=== PATIENT | female | born 1940 | race Caucasian/White ===

== ENCOUNTER 2018-05-19 00:17 | Inpatient (IN) | payer OTHER ==
[2018-05-19] MEDS ORDERED: dilTIAZem HCl 25 MG/5 ML VIAL IV ONE (00:59)
[2018-05-19 01:02] LABS: Absolute Monocytes 0.9 K/uL (0.1-1.3); Absolute Neutrophil 4.5 K/uL (1.8-8.0); Basophils % 0.7 % (0-1.3); Eosinophils % 3.8 % (0-4.4); Hematocrit 40.1 % (36.0-45.0); Lymphocytes % 34.6 % (15.3-44.8); MPV 9.6 fL (7.6-11.3); Monocytes % 9.9 % (3.3-12.3); RBC Red Blood Cell Count 4.35 M/uL (3.86-4.86)
[2018-05-19 01:03] LABS: Protime INR 1.45
[2018-05-19 01:07] LABS: ALT/SGPT 19 U/L (12-78); AST/SGOT 16 U/L (15-37); Albumin 3.6 g/dL (3.4-5.0); Alkaline Phosphatase 93 U/L (45-117); BUN Blood Urea Nitrogen 15 mg/dL (7-18); Bicarbonate 27 mmol/L (21-32); Bilirubin Direct 0.1 mg/dL (0-0.2); Bilirubin Total 0.3 mg/dL (0.2-1.0); Glucose Level 92 mg/dL (74-106); NT PRO-BNP 3958 pg/mL (<450); Potassium 4.1 mmol/L (3.5-5.1); Protein, Total 7.3 g/dL (6.4-8.2); Sodium Level 139 mmol/L (136-145); Troponin (Emerg Dept Use Only) < 0.02 ng/mL (0.0-0.045)
--- NOTE | 2018-05-19 01:23 | ER ---
Nurse's Notes [facility] Name: Tara Mccurdy Age: 78 yrs Sex: Female : 1940 Arrival Date: 05/19/2018 Time: 00:18 Bed 20 Private MD: Larry Bernal C Diagnosis: Paroxysmal atrial fibrillation Presentation: 05/19 00:31 Presenting complaint: Patient states: My heart has been racing and I felt like I was ed1 starting to get a little clammy so I figured I would get checked out. Transition of care: patient was not received from another setting of care. Onset of symptoms was May 17, 2018 at 22:00. Risk Assessment: Do you want to hurt yourself or someone else? Patient reports no desire to harm self or others. Initial Sepsis Screen: Does the patient meet any 2 criteria? No. Patient's initial sepsis screen is negative. Does the patient have a suspected source of infection? No. Patient's initial sepsis screen is negative. Care prior to arrival: None. 00:31 Method Of Arrival: Ambulatory ed1 00:31 Acuity: AIDEE 2 ed1 Triage Assessment: 00:38 General: Appears in no apparent distress. Behavior is calm, cooperative. Pain: Denies ed1 pain. EENT: No signs and/or symptoms were reported regarding the EENT system. Neuro: Level of Consciousness is awake, alert, obeys commands, Oriented to person, place, time, situation, Denies weakness blurred vision dizziness, numbness headache. Cardiovascular: Reports palpitations, since around 10pm Denies chest pain, Heart tones present Capillary refill < 3 seconds in bilateral fingers Patient's skin is warm and dry. Rhythm is atrial fibrillation. Respiratory: Airway is patent Respiratory effort is even, unlabored, Respiratory pattern is regular, symmetrical, Breath sounds are clear bilaterally. Denies cough, shortness of breath. GI: Patient currently denies diarrhea, nausea, vomiting. : No signs and/or symptoms were reported regarding the genitourinary system. Derm: Skin is intact, is healthy with good turgor, Skin is dry, Skin is normal, Skin temperature is warm. Musculoskeletal: Circulation, motion, and sensation intact. Range of motion: intact in all extremities. Historical: - Allergies: 00:38 No Known Allergies; ed1 - Home Meds: 00:38 isosorbide mononitrate 30 mg Oral Tb24 1 tab once daily [Active]; atorvastatin 40 mg ed1 oral tab 1 tab once daily [Active]; apixaban oral 5mg oral twice a day [Active]; metoprolol succinate 50 mg oral Tb24 1 tab once daily [Active]; citalopram 10 mg tab 1 tab once daily [Active]; ranolazine oral 500mg oral daily [Active]; ezetimibe oral 10mg oral once daily [Active]; nitroglycerin 0.4 mg SL subl 1 tab every 5 minutes [Active]; - PMHx: 00:38 Atrial Fib; ed1 - PSHx: 00:38 Cholecystectomy; Appendectomy; ed1 - Immunization history:: Adult Immunizations up to date, Flu vaccine is up to date. - Social history:: Smoking status: Patient/guardian denies using tobacco, never smoked. - Ebola Screening: : Patient negative for fever greater than or equal to 101.5 degrees Fahrenheit, and additional compatible Ebola Virus Disease symptoms Patient denies exposure to infectious person Patient denies travel to an Ebola-affected area in the 21 days before illness onset No symptoms or risks identified at this time. Screenin:44 Abuse screen: Denies threats or abuse. Denies injuries from another. Nutritional ed1 screening: No deficits noted. Tuberculosis screening: No symptoms or risk factors identified. Fall Risk None identified. Assessment: 00:43 General: See triage assessment. ed1 Vital Signs: 00:38 BP 116 / 91; Pulse 130; Resp 20; Temp 97.6(O); Pulse Ox 93% on R/A; Weight 82.55 kg; ed1 Height 5 ft. 8 in. (172.72 cm); Pain 0/10; 01:06 BP 109 / 62; Pulse 95; Resp 26; Pulse Ox 95% on R/A; Pain 0/10; ed1 00:38 Body Mass Index 27.67 (82.55 kg, 172.72 cm) ed1 ED Course: 00:18 Patient arrived in ED. do 00:19 Larry Bernal MD is Private Physician. do 00:25 Elizabeth Cr, ZIGGY is Primary Nurse. ed1 00:29 Genaro Keating MD is Attending Physician. tw4 00:32 Triage completed. ed1 00:38 Arm band placed on. EKG completed in triage. Results shown to MD. ed1 00:38 Patient has correct armband on for positive identification. Placed in gown. Bed in low ed1 position. Call light in reach. Side rails up X2. Adult w/ patient. potline monitor on. Pulse ox on. NIBP on. 00:43 Initial lab(s) drawn, by me, sent to lab. Inserted saline lock: 20 gauge in right ed1 antecubital area, using aseptic technique. Blood collected. 01:21 Larry Bernal MD is Hospitalizing Provider. tw4 01:40 XRAY Chest (1 view) In Process Unspecified. EDMS 03:45 No provider procedures requiring assistance completed. Patient admitted, IV remains in ed1 place. intact, No redness/swelling at site. 07:00 Primary Nurse role handed off by Elizabeth Cr, ZIGGY ed1 07:04 Hansel Laguna LVN is Primary Nurse. em Administered Medications: 00:57 Drug: Cardizem 10 mg Route: IVP; Site: right antecubital; ed1 01:15 Follow up: Response: No adverse reaction; Cardiac rhythm changed ed1 01:44 Drug: Metoprolol 25 mg Route: PO; ed1 02:30 Follow up: Response: No adverse reaction ed1 Outcome: 01:22 Decision to Hospitalize by Provider. tw4 03:45 Admitted to ER Hold. Please see [facility] for further documentation. ed1 03:45 Condition: stable 03:45 Discharge instructions given to patient, Instructed on the need for admit, Demonstrated understanding of instructions. 08:15 Patient left the ED. em Signatures: Dispatcher [employer] Hansel Bishop LVN LVN em Elizabeth Cr, RN RN ed1 Fern Romano Terrence, MD MD tw4
--- NOTE | 2018-05-19 01:23 | EDPHYS ---
Physician Documentation [facility] Name: Tara Mccurdy Age: 78 yrs Sex: Female : 1940 Arrival Date: 05/19/2018 Time: 00:18 Bed 20 Private MD: Larry Bernal C ED Physician Genaro Keating HPI: 05/19 03:02 This 78 yrs old Female presents to ER via Ambulatory with complaints of Afib tw4 last night, feels clammy, heart racing. 03:02 The patient presents with a history of heart racing, heart skipping beats. Context: The tw4 symptoms occur at rest. Onset: The symptoms/episode began/occurred just prior to arrival, this morning. Duration: The patient or guardian reports a single episode, that is still ongoing. Modifying factors: The symptoms are aggravated by nothing. The symptoms are alleviated by nothing. Associated signs and symptoms: The patient has no apparent associated signs or symptoms. Severity of symptoms: At their worst the symptoms were moderate in the emergency department the symptoms are unchanged. The patient has not experienced similar symptoms in the past. Historical: - Allergies: 00:38 No Known Allergies; ed1 - Home Meds: 00:38 isosorbide mononitrate 30 mg Oral Tb24 1 tab once daily [Active]; atorvastatin 40 mg ed1 oral tab 1 tab once daily [Active]; apixaban oral 5mg oral twice a day [Active]; metoprolol succinate 50 mg oral Tb24 1 tab once daily [Active]; citalopram 10 mg tab 1 tab once daily [Active]; ranolazine oral 500mg oral daily [Active]; ezetimibe oral 10mg oral once daily [Active]; nitroglycerin 0.4 mg SL subl 1 tab every 5 minutes [Active]; - PMHx: 00:38 Atrial Fib; ed1 - PSHx: 00:38 Cholecystectomy; Appendectomy; ed1 - Immunization history:: Adult Immunizations up to date, Flu vaccine is up to date. - Social history:: Smoking status: Patient/guardian denies using tobacco, never smoked. - Ebola Screening: : Patient negative for fever greater than or equal to 101.5 degrees Fahrenheit, and additional compatible Ebola Virus Disease symptoms Patient denies exposure to infectious person Patient denies travel to an Ebola-affected area in the 21 days before illness onset No symptoms or risks identified at this time. ROS: 03:02 Constitutional: Negative for fever, chills, and weight loss, Eyes: Negative for injury, tw4 pain, redness, and discharge, Respiratory: Negative for shortness of breath, cough, wheezing, and pleuritic chest pain, Abdomen/GI: Negative for abdominal pain, nausea, vomiting, diarrhea, and constipation, Back: Negative for injury and pain. 03:02 Cardiovascular: Positive for palpitations, Negative for chest pain, edema, orthopnea. Exam: 03:02 Constitutional: This is a well developed, well nourished patient who is awake, alert, tw4 and in no acute distress. Head/Face: Normocephalic, atraumatic. Chest/axilla: Normal chest wall appearance and motion. Nontender with no deformity. No lesions are appreciated. Respiratory: Lungs have equal breath sounds bilaterally, clear to auscultation and percussion. No rales, rhonchi or wheezes noted. No increased work of breathing, no retractions or nasal flaring. Abdomen/GI: Soft, non-tender, with normal bowel sounds. No distension or tympany. No guarding or rebound. No evidence of tenderness throughout. Back: No spinal tenderness. No costovertebral tenderness. Full range of motion. MS/ Extremity: Pulses equal, no cyanosis. Neurovascular intact. Full, normal range of motion. Neuro: Awake and alert, GCS 15, oriented to person, place, time, and situation. Cranial nerves II-XII grossly intact. Motor strength 5/5 in all extremities. Sensory grossly intact. Cerebellar exam normal. Normal gait. 03:02 Cardiovascular: Rate: normal, Rhythm: irregularly irregular, Pulses: no pulse deficits are appreciated, Heart sounds: normal. Vital Signs: 00:38 BP 116 / 91; Pulse 130; Resp 20; Temp 97.6(O); Pulse Ox 93% on R/A; Weight 82.55 kg; ed1 Height 5 ft. 8 in. (172.72 cm); Pain 0/10; 01:06 BP 109 / 62; Pulse 95; Resp 26; Pulse Ox 95% on R/A; Pain 0/10; ed1 00:38 Body Mass Index 27.67 (82.55 kg, 172.72 cm) ed1 MDM: 00:29 Patient medically screened. tw4 03:02 Differential diagnosis: arrythmia, dehydration, stress disorder. Data reviewed: vital tw4 signs, nurses notes. Data interpreted: Pulse oximetry: Interpretation:. Test interpretation: by ED physician or midlevel provider: ECG, plain radiologic studies. Counseling: I had a detailed discussion with the patient and/or guardian regarding: the historical points, exam findings, and any diagnostic results supporting the discharge/admit diagnosis, lab results, radiology results. Medication response: cardizem. Response to treatment: the patient's symptoms have markedly improved after treatment, and as a result, I will admit patient, give anti-hypertensive medication. Physician consultation: Jay Haley MD was contacted at 01:30, regarding admission, and will see patient in inpatient room. 03:12 ED course: Pt achieved good rate control after IV Cardizem 10mg . Pt EKG continues show tw4 atrial fibrillation with a rate of 100. Will add metoprolol po 25mg. D/W Dr Tera allen agrees with treatment plan and admission. 05/19 00:33 Order name: Basic Metabolic Panel; Complete Time: 01:34 tw4 05/19 01:34 Interpretation: Normal except: GFR 66. tw4 05/19 00:33 Order name: CBC with Diff; Complete Time: 01:34 tw4 05/19 01:34 Interpretation: Within normal limits. 05/19 00:33 Order name: LFT's; Complete Time: 01:34 tw4 05/19 01:34 Interpretation: Normal except: GLOB 3.7; A/G 1.0. tw4 05/19 00:33 Order name: Magnesium; Complete Time: 01:34 tw4 05/19 01:34 Interpretation: Within normal limits: MG 2.0. 05/19 00:33 Order name: NT PRO-BNP; Complete Time: 01:34 tw4 05/19 01:34 Interpretation: Normal except: NT PRO-BNP 3958. tw05/19 00:33 Order name: PT-INR; Complete Time: 01:34 tw4 05/19 01:34 Interpretation: Normal except: PT 16.9. tw4 05/19 00:33 Order name: Troponin (emerg Dept Use Only) tw4 05/19 01:44 Order name: Basic Metabolic Panel [facility] 05/19 01:44 Order name: Basic Metabolic Panel [facility] 05/19 01:44 Order name: CBC with Automated Diff [facility] 05/19 01:44 Order name: CBC with Automated Diff [facility] 05/19 01:45 Order name: Comprehensive Metabolic Panel [facility] 05/19 01:45 Order name: T4 Free [facility] 05/19 01:45 Order name: Thyroid Stimulating Hormone [facility] 05/19 00:33 Order name: XRAY Chest (1 view) tw4 05/19 00:33 Order name: EKG; Complete Time: 00:34 4 05/19 00:33 Order name: Cardiac monitoring; Complete Time: 00:44 05/19 00:33 Order name: EKG - Nurse/Tech; Complete Time: 00:44 05/19 00:33 Order name: IV Saline Lock; Complete Time: 00:44 4 05/19 00:33 Order name: Labs collected and sent; Complete Time: 00:44 tw4 05/19 01:44 Order name: CONS Physician Consult [facility] 05/19 01:44 Order name: Heart Healthy [facility] 05/19 01:44 Order name: Echo with Doppler [facility] 05/19 01:44 Order name: EKG Electrocardiogram [facility] 05/19 01:44 Order name: EKG Electrocardiogram [facility] 05/19 01:45 Order name: Magnesium [facility] 05/19 01:45 Order name: Magnesium [facility] 05/19 01:45 Order name: Troponin I [facility] 05/19 00:33 Order name: O2 Per Protocol; Complete Time: 00:44 tw4 05/19 00:33 Order name: O2 Sat Monitoring; Complete Time: 00:43 tw4 EC:16 Rate is 118 beats/min. Rhythm is irregularly irregular, A fib. QRS [place] is Normal. TN tw4 interval is normal. QRS interval is normal. QT interval is normal. No Q waves. T waves are Normal. No ST changes noted. Clinical impression: Abnormal EKG without significant change and Atrial Fibrillation. Interpreted by me. Reviewed by me. Administered Medications: 00:57 Drug: Cardizem 10 mg Route: IVP; Site: right antecubital; ed1 01:15 Follow up: Response: No adverse reaction; Cardiac rhythm changed ed1 01:44 Drug: Metoprolol 25 mg Route: PO; ed1 02:30 Follow up: Response: No adverse reaction ed1 Disposition: 05/19/18 01:22 Hospitalization ordered by Larry Bernal for Inpatient Admission. Preliminary diagnosis is Paroxysmal atrial fibrillation. - Bed requested for Telemetry/MedSurg (Inpatient). - Status is Inpatient Admission. em - Condition is Stable. - Problem is new. - Symptoms have improved. UTI on Admission? No Signatures: Dispatcher [employer] EDMS Pati Yee, RN RN Teresa Jackson RN RN Hansel Laguna, MEDICAL DETAIL REPRESENTATIVE MEDICAL DETAIL REPRESENTATIVE em Elizabeth Cr RN RN ed1 Genaro Keating MD MD tw4 Corrections: (The following items were deleted from the chart) 02:23 01:22 Hospitalization Ordered by A Gabe DSOUZA for Inpatient Admission. Preliminary diagnosis is Paroxysmal atrial fibrillation. Bed requested for Telemetry/MedSurg (Inpatient). Status is Inpatient Admission. Condition is Stable. Problem is new. Symptoms have improved. UTI on Admission? No. tw4 05:51 02:23 05/19/2018 01:22 Hospitalization Ordered by A Gabe DSOUZA for Inpatient Admission. Preliminary diagnosis is Paroxysmal atrial fibrillation. Bed requested for [facility] ER HOLD. Status is Inpatient Admission. Condition is Stable. Problem is new. Symptoms have improved. UTI on Admission? No. fc 08:15 05:51 05/19/2018 01:22 Hospitalization Ordered by A Gabe DSOUZA for Inpatient Admission. Preliminary diagnosis is Paroxysmal atrial fibrillation. Bed requested for Telemetry/MedSurg (Inpatient). Status is Inpatient Admission. Condition is Stable. Problem is new. Symptoms have improved. UTI on Admission? No.
[2018-05-19] MEDS ORDERED: ACETAMINOPHEN 500 MG TAB PO PRN (01:40)
[2018-05-19] MEDS ORDERED: MORPHINE 4 MG/ML SYR IV PRN (01:40)
[2018-05-19] MEDS ORDERED: METOPROLOL TAR 25 MG TAB ONE (01:46)
[2018-05-19] MEDS: METOPROLOL TARTRATE 5 MG/5 ML INJ IV SCH ×2 (03:00→03:05)
[2018-05-19 03:02] VITALS: BMI 27.6
[2018-05-19] MEDS: METOPROLOL TAR 50 MG TAB PO SCH ×3 (06:00→20:35)
[2018-05-19 06:26] LABS: ALT/SGPT 18 U/L (12-78); AST/SGOT 15 U/L (15-37); Albumin 3.2 g/dL (3.4-5.0); Alkaline Phosphatase 81 U/L (45-117); BUN Blood Urea Nitrogen 13 mg/dL (7-18); Bicarbonate 27 mmol/L (21-32); Bilirubin Total 0.3 mg/dL (0.2-1.0); Glucose Level 93 mg/dL (74-106); Potassium 4.5 mmol/L (3.5-5.1); Protein, Total 6.7 g/dL (6.4-8.2); Sodium Level 142 mmol/L (136-145); Troponin I < 0.02 ng/mL (0.0-0.045)
[2018-05-19] MEDS ORDERED: METOPROLOL TAR 50 MG TAB ONE (06:35)
[2018-05-19] MEDS: APIXABAN 5 MG TABLET PO SCH ×2 (08:23→20:35)
[2018-05-19] MEDS: ASPIRIN EC 81 MG TAB PO SCH (08:23)
--- NOTE | 2018-05-19 09:43 | EKG ---
Test Date: 2018-05-19 Test Time: 00:35:21 Variety Saw Operator: AG3 MEASUREMENT RESULTS: Intervals: Rate: 118 MD: QRSD: 84 QT: 356 QTc: 498 [place]: P: MD: QRS: 25 T: 78 INTERPRETIVE STATEMENTS: Atrial fibrillation with rapid ventricular response Inferior infarct, age undetermined Anterolateral infarct, age undetermined Abnormal ECG No previous ECG available for comparison Electronically Signed On 05-19-18 09:42:51 CDT by Reyes Stephens
[2018-05-19 09:51] LABS: Urine Appearance CLEAR; Urine Bilirubin NEGATIVE (NEG); Urine Blood NEGATIVE (NEG); Urine Color YELLOW; Urine Glucose NEGATIVE (NEG); Urine Protein NEGATIVE (NEG); Urine Specific Gravity <=1.005 (1.005-1.030); Urine Urobilinogen 0.2 mg/dL (0.2-1.0); Urine pH 5.5 (5.0-7.0)
[2018-05-19 10:09] LABS: Urine Microscopic Reflex NO UMIC
--- NOTE | 2018-05-19 10:32 | RAD REPORT ---
EXAM DESCRIPTION: Alli Single View05/19/2018 1:38 am CLINICAL HISTORY: Tachycardia COMPARISON: none FINDINGS: The lungs appear clear of acute infiltrate. The heart is normal size IMPRESSION: No acute abnormalities displayed
--- NOTE | 2018-05-19 10:55 | P.HP ---
Certification for Inpatient Patient admitted to: Inpatient With expected LOS: >2 Midnights Patient will require the following post-hospital care: None Practitioner: I am a practitioner with admitting privileges, knowledge of patient current condition, hospital course, and medical plan of care. Services: Services provided to patient in accordance with Admission requirements found in Title 42 Section 412.3 of the Code of Federal Regulations Patient History Date of Service: 05/19/18 Reason for admission: atrial fibrillation with rapid ventricular response History of Present Illness: Patient is a 78-year-old who came to the hospital with atrial fibrillation with rapid ventricular response. Patient on Lopressor for the atrial fibrillation as well as blood thinning medication. 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 However her heart rate became unstable. She came to the hospital for further evaluation. In the ER she was given IV Cardizem. Heart rate converted to a sinus rhythm. However she has been in and out of atrial fibrillation. She will be admitted to the hospital for further treatment. Cardiology consultation. Continue anticoagulation therapy. Allergies No Known Allergies Allergy (Unverified 05/19/18 02:44) Home Medications: Apixaban [Eliquis] 5 mg PO BID 05/19/18 Atorvastatin Calcium 40 mg PO DAILY 05/19/18 Citalopram [Celexa*] 1 tab PO DAILY 05/19/18 Ezetimibe 10 mg PO DAILY 05/19/18 Isosorbide Mononitrate [Isosorbide Mononitrate ER] 30 mg PO DAILY 05/19/18 Metoprolol Tartrate [Lopressor*] 50 mg PO BID #30 tab 05/19/18 Nitroglycerin 0.4 mg SL Q5MX3, Q15MX1, Q30M PRN 05/19/18 - Past Medical/Surgical History Has patient received pneumonia vaccine in the past: Yes Diabetic: No -: A-Fib -: Cholecystectomy -: Appendectomy -: Cardiac Ablasion -: Heart Stents - Family History Father Notes: Alzheimer's Disease Brother Notes: A-Fib - Social History Smoking Status: Never smoker Alcohol use: No CD- Drugs: No Caffeine use: Yes Place of Residence: Home Review of Systems 10-point ROS is otherwise unremarkable Physical Examination - Vital Signs Temperature: 97.1 F Blood Pressure: 101/61 Pulse: 106 Respirations: 16 Pulse Ox (%): 96 - Physical Exam General: Alert, In no apparent distress, Oriented x3 HEENT: Atraumatic, PERRLA, Mucous membr. moist/pink, EOMI, Sclerae nonicteric Neck: Supple, 2+ carotid pulse no bruit, No LAD, Without JVD or thyroid abnormality Respiratory: Clear to auscultation bilaterally, Normal air movement Cardiovascular: Normal S1 S2, Irregular heart rate/rhythm, Systolic murmur Gastrointestinal: Normal bowel sounds, Soft and benign, Non-distended, No tenderness Musculoskeletal: No clubbing, No swelling, No tenderness Integumentary: No rashes Neurological: Normal gait, Normal speech, Normal strength at 5/5 x4 extr, Normal tone, Sensation intact, Cranial nerves 3-12 intact, Normal affect Lymphatics: No axilla or inguinal lymphadenopathy - Studies Laboratory Data (last 24 hrs) 05/19/18 00:40: PT 16.9 H, INR 1.45 05/19/18 00:40: WBC 8.7, Hgb 13.5, Hct 40.1, Plt Count 222 05/19/18 00:40: Sodium 139, Potassium 4.1, BUN 15, Creatinine 0.83, Glucose 92, Magnesium 2.0, Total Bilirubin 0.3, AST 16, ALT 19, Alkaline Phosphatase 93 Assessment & Plan - Problems (Diagnosis) (1) Atrial fibrillation with rapid ventricular response Current Visit: Yes Status: Acute - Plan 1. Will continue medications for rate control and anticoagulation 2. Continue with strict blood pressure control; check thyroid studies 3. Echocardiogram 4. Cardiology consultation 5. GI and DVT prophylaxis Discharge Plan: Home Plan to discharge in: Greater than 2 days - Advance Directives Does patient have a Living Will: Yes Does patient have a Durable POA for Healthcare: Yes - Code Status/Comfort Care Code Status Assessed: Yes Code Status: Full Code Critical Care: No Time Spent Managing PTS Care (In Minutes): 45
[2018-05-20 05:51] LABS: Potassium 4.4 mmol/L (3.5-5.1)
[2018-05-20 05:56] LABS: Absolute Lymphocytes (CBC) 2.8 K/uL (0.7-4.9); Absolute Monocytes 0.9 K/uL (0.1-1.3); Absolute Neutrophil 4.9 K/uL (1.8-8.0); Basophils % 0.5 % (0-1.3); Eosinophils % 4.1 % (0-4.4); Hematocrit 45.5 % (36.0-45.0); Lymphocytes % 31.4 % (15.3-44.8); MPV 9.5 fL (7.6-11.3); Monocytes % 9.9 % (3.3-12.3)
[2018-05-20] MEDS: APIXABAN 5 MG TABLET PO SCH ×2 (08:28→20:27)
[2018-05-20] MEDS: ASPIRIN EC 81 MG TAB PO SCH (08:28)
[2018-05-20] MEDS: METOPROLOL TAR 50 MG TAB PO SCH ×2 (08:28→20:26)
--- NOTE | 2018-05-20 14:42 | P.PN ---
Subjective Date of Service: 05/20/18 Chief Complaint: atrial fibrillation with rapid ventricular response Subjective: Improving Patient seen and examined at bedside. No family at bedside. Chart reviewed and case discussed with nursing staff. Patient states she can feel her heart rate and is not feeling good at this time. States she feels weak Overnight, patient's heart rate was up in 130's-140s. This morning seems to be rate control Review of Systems 10-point ROS is otherwise unremarkable Physical Examination - Vital Signs Temperature: 97.2 F Blood Pressure: 119/74 Pulse: 104 Respirations: 16 Pulse Ox (%): 96 - Physical Exam General: Alert, In no apparent distress HEENT: Atraumatic, PERRLA, EOMI Neck: Supple, JVD not distended Respiratory: Clear to auscultation bilaterally, Normal air movement Cardiovascular: Irregular heart rate/rhythm (Atrial fibrillation) Gastrointestinal: Normal bowel sounds, No tenderness Musculoskeletal: No tenderness Integumentary: No rashes Neurological: Normal speech, Normal tone, Normal affect Lymphatics: No axilla or inguinal lymphadenopathy Assessment And Plan - Current Problems (Diagnosis) (1) Atrial fibrillation with rapid ventricular response Current Visit: Yes Status: Acute - Plan 1. Will continue medications for rate control and anticoagulation. Will consider giving dig if heart rate continues to stay elevated. 2. Continue with strict blood pressure control; 3. TSH elevated to 5.950. Discussed with patient, we will start low-dose levothyroxine and she will follow up with her primary care physician for a thyroid recheck and further management 3. Echocardiogram ordered, pending 4. Cardiology consultation, recommendations appreciated. 5. GI and DVT prophylaxis
--- NOTE | 2018-05-20 23:39 | CON ---
Date of Consultation: 05/19/2018 Reason For Consultation: Atrial fibrillation with rapid ventricular response. History Of Present Illness: Ms. Mccurdy is 78. She has had atrial fibrillation in the past. She is status post 2 ablations at [facility]. She apparently has been in sinus rhythm according to her. She takes Eliquis and metoprolol 50 mg daily for the atrial fibrillation. She came in with rec urrent atrial fibrillation, rapid ventricular response, shortness of breath and weakness, dizziness. No nausea, vomiting, diaphoresis, PND, orthopnea, pedal edema or syncope. Denied any chest pain. H as ruled out for an AL already. She remains in atrial fibrillation at a rate of 110. Past Medical History: Include atrial fibrillation, dyslipidemia, depression, coronary artery disease and hypertension. She has had stents in the past years ago. Allergies: NONE. Review of Systems: Negative. Social History: Negative. Family History: Negative. Medications: Include Eliquis, Lipitor, Celexa, Zetia, Imdur, metoprolol 50 mg daily as well as Ranex a. Physical Examination: General: She was in atrial fibrillation. No acute distress otherwise. HEENT: Negative. Neck: Supple without any bruit, lymphadenopathy, JVD, or thyromegaly. Chest: Clear to auscultation and percussion. Cardiac: Exam revealed atrial fibrillation. No murmurs, gallops, or rubs. Abdomen: Benign. Extremities: Revealed no clubbing, cyanosis, or edema. Skin: Dry and intact. Neurologic: She was nonfocal. Diagnostic Data: EKG showed atrial fibrillation. BNP was 3958. Rest of the blood work was normal. Impression And Plan: 1.Recurrent atrial fibrillation, on Eliquis and metoprolol. I would continue Eliquis. I would doub le the metoprolol to 50 b.i.d., consider to use digoxin IV if we have to control her rate. If she co nverts that would be great. If not, we can certainly keep her on a higher dose metoprolol and maybe p.o. digoxin and Eliquis, and we will consider her for a third ablation. It seems that this is what she wants to do. The family was aware of this as well. I certainly do not recommend a cardioversion electrically at this point. 2.Dyslipidemia on Lipitor. 3.Depression, on Celexa. 4.Coronary artery disease. I am not really so sure why she needs the Imdur and Ranexa. She has not had any chest pain for years after her stent and I suggested we discontinue her Ranexa. She does ne ed an echocardiogram done soon and she could certainly have it done with us or with her bead stringer in the past. She would make a decision afterwards. CHILANGO/CHINO Voice ID: [id number] Report ID: [id number]
[2018-05-21] MEDS: METOPROLOL TAR 50 MG TAB PO SCH ×2 (09:22→20:32)
[2018-05-21] MEDS: APIXABAN 5 MG TABLET PO SCH ×2 (09:22→20:33)
[2018-05-21] MEDS: ASPIRIN EC 81 MG TAB PO SCH (09:22)
--- NOTE | 2018-05-21 13:49 | ECHO ---
HEIGHT: 5 ft 8 in WEIGHT: 181 lb 15.865 oz DATE OF STUDY: 05/21/[address]: Jay Haley MD 2-DIMENSIONAL: YES M.MODE: YES DOPPLER: YES COLOR FLOW: YES TDS: PORTABLE: DEFINITY: BUBBLE STUDY: DIAGNOSIS: ATRIAL FIBRILLATION WITH RAPID VENTRICULAR RESPONSE. CARDIAC HISTORY: CATHERIZATION: YES SURGERY: NO PROSTHETIC VALVE: NO PACEMAKER: NO MEASUREMENTS (cm) DIASTOLIC (NORMALS) SYSTOLIC (NORMALS) IVSd 1.0 (0.6-1.2) LA Diam 4.1 (1.9-4.0) LVEF 74% LVIDd 3.6 (3.5-5.7) LVIDs 2.1 (2.0-3.5) %FS 42% LVPWd 1.2 (0.6-1.2) Ao Diam 3.1 (2.0-3.7) 2 DIMENSIONAL ASSESSMENT: RIGHT ATRIUM: NORMAL LEFT ATRIUM: DILATED RIGHT VENTRICLE: NORMAL LEFT VENTRICLE: NORMAL TRICUSPID VALVE: NORMAL MITRAL VALVE: MITRAL ANNULAR CALCIFICATION PULMONIC VALVE: NORMAL AORTIC VALVE: TRI-LEAFLET NORMAL PERICARDIAL EFFUSION: NONE AORTIC ROOT: NORMAL LEFT VENTRICULAR WALL MOTION: NORMAL DOPPLER/COLOR FLOW: MILD MITRAL REGURGITATION. TRACE TRICUSPID REGURGITATION. NORMAL RIGHT VENTRICULAR SYSTOLIC PRESSURE. COMMENTS: NORMAL LEFT VENTRICULAR EJECTION FRACTION. DILATED LEFT ATRIUM. MITRAL ANNULAR CALCIFICATION. MILD MITRAL REGURGITATION. TRACE TRICUSPID REGURGITATION. TECHNOLOGIST: NIKHIL SANCHEZ
--- NOTE | 2018-05-22 01:53 | PN ---
Date of Progress Note: 05/21/2018 Subjective: The patient was seen this morning for followup, lying in bed, not in distress, complaini ng of palpitation feeling. No shortness of breath. No chest pain, nausea, vomiting. Objective: Vital Signs: Reviewed. HEENT: Unremarkable. Lungs: Clear to auscultation. Heart: Sounds normal. Abdomen: Soft. Bowel sounds normal. No guarding, rigidity, tenderness, distention. Extremities: No leg edema. Laboratory Data: Yesterday, white count 9, hemoglobin 15, platelets 245. Chemistry from yesterday; sodium 143, potassium 4.4, chloride 106, bicarb 32, BUN 14, creatinine 0.81, glucose 85. Impression: 1.Atrial fibrillation with rapid ventricular rate. 2.Hypothyroidism. Plan: The patient's TSH level day before yesterday was 5.95. She is on metoprolol and Eliquis and C ardiology consultation has been obtained and Dr. Stephens has suggested to increase dose of metoprolol to twice a day. We will continue Eliquis. Once we are able to establish that she is stable for dis charge, we will plan to discharge her to go home hopefully by tomorrow and we will be able to have be tter control on her rate with continuation of anticoagulation therapy. We will feel comfortable send ing her home at that particular point, unless receiving operator has any other different recommendation. The patient to continue to follow with receiving operator on an outpatient basis. I will see her tomorrow for followup. JESSICA/MODL Voice ID: [id number] Report ID: [id number]
[2018-05-22] MEDS: METOPROLOL TAR 50 MG TAB PO SCH (10:03)
[2018-05-22] MEDS: APIXABAN 5 MG TABLET PO SCH (10:04)
[2018-05-22] MEDS: ASPIRIN EC 81 MG TAB PO SCH (10:04)
[2018-05-22 10:05] VITALS: BP 106/59
[2018-05-22 10:58] VITALS: TEMP 97
[2018-05-22 12:10] VITALS: O2SAT 97
--- NOTE | 2018-05-23 19:00 | DS ---
Date of Discharge: 05/22/2018 Disposition: Discharged to go home. Physical Examination: HEENT: Unremarkable. Lungs: Clear to auscultation. Heart: Sounds normal. Abdomen: Soft bowel sounds normal. No guarding, rigidity, tenderness, distention. Extremities: No leg edema. Discharge Medications And Instructions: 1.Continue all prior home medication except stop Ranexa and increase metoprolol 50 mg 1 tablet p.o. twice a day. 2.Follow with Dr. Stephens at 8:30 a.m. tomorrow at his office and follow up at my office in 2 weeks. Hospital Course: A 78-year-old female patient with prior history of atrial fibrillation and ablation procedure done twice in the past, was in sinus rhythm for a long time, and takes all her medications regularly including Eliquis. She came into emergency room with complaints of palpitation. After danna carbajal was evaluated in the ER, she was admitted to the hospital with atrial fibrillation with rapid ventr icular rate. At home, she was taking metoprolol 50 mg once a day and Cardiology consultation was obt ained from our assistant clinical nurse manager, Dr. Stephens, who suggested to increase her metoprolol to 50 mg twice a d ay and to discontinue Ranexa and advised to continue Eliquis. I did talk to Dr. Stephens today, and todd carbajal informed me that in his opinion, it does not appear that medication will be successful to bring her back to sinus rhythm and his recommendation is for patient to see networking engineer in [facility] for consideration of another ablation procedure, and he will see patient at his office tomorrow to discuss all these details. Medically, she is stable for discharge. She still does not feel like libertad k to normal self because she still remains in atrial fibrillation and has some palpitation feeling an d tiredness. Her heart rate is under better control with increased dose of metoprolol. Details were discussed with the patient's son on the phone this evening as well. Final Diagnoses: 1.Atrial fibrillation, paroxysmal, with rapid ventricular rate. 2.Hypertension. 3.Hyperlipidemia. 4.Hypothyroidism. Laboratory Data: Labs done during this hospitalization, upon admission on 05/19/2018, white count 8. 7, hemoglobin 13.5, platelets 222. Sodium 139, potassium 4.1, chloride 105, bicarb 27, BUN 15, creat inine 0.83, glucose 92. Liver function tests unremarkable. Troponin less than 0.02. TSH was 5.95. Echocardiogram from yesterday shows ejection fraction 74%, mild mitral regurgitation, trace tricuspi d regurgitation. Discharge Instruction: Follow up at my office in 1 month. JESSICA/CHINO Voice ID: [id number] Report ID: [id number]
== END 2018-05-22 12:12 | disposition home or self-care (01) | DRG 310 ==
LOC: ER 00:17 → ERHOLD 01:54 → 2ND 07:54
PROVIDERS: ADMIT Hospitalist; ATTEND Hospitalist
DX: I48.0 Paroxysmal atrial fibrillation (principal); E78.5 Hyperlipidemia, unspecified; I10 Essential (primary) hypertension; F32.9 Major depressive disorder, single episode, unspecified; E03.9 Hypothyroidism, unspecified; Z95.5 Presence of coronary angioplasty implant and graft; Z79.01 Long term (current) use of anticoagulants
CPT/HCPCS: 36415; 71045; 80048; 80053; 80076; 81003; 83735; 83880; 84439; 84443; 84484; 85025; 85610; 93005; 93306; 96374; 99285

== ENCOUNTER 2018-09-13 13:05 | Inpatient (IN) | payer OTHER ==
[2018-09-13 13:49] VITALS: BMI 27.9
[2018-09-13] MEDS ORDERED: CEFTRIAXONE/SWI 1gm 1 GM/10 ML SYR IVP SCH (15:00)
[2018-09-13] MEDS: D5 0.9 NS 1,000 ML IV SCH (15:09)
[2018-09-13 15:17] LABS: Protime INR 1.53
[2018-09-13 15:36] LABS: Albumin 3.3 g/dL (3.4-5.0); Bilirubin Total 1.3 mg/dL (0.2-1.0); Magnesium 2.2 mg/dL (1.8-2.4); Potassium 4.2 mmol/L (3.5-5.1); Protein, Total 7.3 g/dL (6.4-8.2)
[2018-09-13 15:44] LABS: Absolute Lymphocytes (CBC) 1.8 K/uL (0.7-4.9); Basophils % 0.2 % (0-1.3); Hematocrit 38.9 % (36.0-45.0); Lymphocytes % 14.1 % (15.3-44.8); MPV 9.4 fL (7.6-11.3); RBC Red Blood Cell Count 4.37 M/uL (3.86-4.86)
--- NOTE | 2018-09-13 16:26 | EKG ---
Test Date: 2018-09-13 Test Time: 14:45:24 Senior Business Development Analyst: FLAVIO MEASUREMENT RESULTS: Intervals: Rate: 79 RI: 198 QRSD: 90 QT: 442 QTc: 506 [place]: P: 39 RI: 198 QRS: -5 T: 54 INTERPRETIVE STATEMENTS: Normal sinus rhythm with sinus arrhythmia Lateral infarct, age undetermined Inferior infarct, age undetermined Abnormal ECG Compared to ECG 05/19/2018 00:35:21 Atrial fibrillation no longer present Myocardial infarct finding still present Electronically Signed On 09-13-18 16:25:14 CDT by Reyes Stephens
[2018-09-13] MEDS ORDERED: METRONIDAZOLE 500mg IVPB 500 MG/100 ML BAG IV SCH (17:00)
--- NOTE | 2018-09-13 17:46 | RAD REPORT ---
EXAM DESCRIPTION: CT - Abdomen Pelvis W Contrast - 09/13/2018 5:10 pm CLINICAL HISTORY: Abdominal pain, tenderness, diarrhea, prior cholecystectomy and appendectomy COMPARISON: None. TECHNIQUE: Biphasic, helical CT imaging of the abdomen and pelvis was performed following 100 ml non -ionic IV contrast. Oral contrast was given. All CT scans are performed using dose optimization technique as appropriate and may include automated exposure control or mA/KV adjustment according to patient size. FINDINGS: No suspicious findings in the lung bases. Minimal atelectasis or scarring changes present. No pericardial thickening or effusion. Valve and Coronary artery calcifications are present. Small h iatal hernia present. The liver, spleen, and pancreas show no suspicious findings. Gallbladder is absent. No abnormal bilia ry tree dilatation. Symmetric renal function is seen with no hydronephrosis or suspicious renal mass. No pyelonephritis o r acute parenchymal process. Urinary bladder is tightly contracted limiting assessment. No adrenal ab normalities. Atrophic uterus is present. Patient has prominent non thrombosed veins in each adnexum. Ovaries are atrophic. Ovarian process is not suspected. No gastric dilatation or wall thickening. Oral contrast has reached the mid small bowel. Patient has multiple prominent proximal small bowel loops that show a gradual progression to normal diameter in t he proximal ileum. An obstructing mass is not identified. Distal small bowel is normal in diameter. N o appendicitis findings. Appendix is absent by history. Fluid filled colon from cecum to splenic flex ure. Patient has moderate descending colon diverticulosis and very severe sigmoid diverticulosis. The re is slightly irregular wall thickening and adjacent stranding at the rectosigmoid junction. Distal rectum shows no acute finding. No abscess, free air or extravasation of bowel content. No hernia, ma ss or bulky lymphadenopathy. No suspicious bony findings. IMPRESSION: Mild to moderate acute diverticulitis at the rectosigmoid junction. No abscess, free air or other complicating factor. Numerous distended small bowel loops to the proximal ileum level. An obstructing mass is not identifi ed and this is favored to be a reactive ileus rather than a small bowel obstructive process.
--- NOTE | 2018-09-13 18:00 | RAD REPORT ---
EXAM DESCRIPTION: RAD - Chest Pa And Lat (2 Views) - 09/13/2018 5:20 pm CLINICAL HISTORY: Abdominal pain COMPARISON: Portable May 19 TECHNIQUE: PA and lateral views of the chest were obtained. FINDINGS: The lungs are clear of a focal mass or consolidation. No failure or volume overload. Right hemidiaphragm elevation present similar to comparison. Chronic interstitial lung pattern matches the comparison. Heart size is normal and central vasculature is within normal limits. No pleural effusion or pneu mothorax seen. No acute bony finding noted. No aortic abnormality. IMPRESSION: Chronic interstitial lung disease matching comparison. No acute findings seen.
[2018-09-13] MEDS ORDERED: PIPER/TAZO/NS 3.375gm 6.750 GM/200 ML BAG ONE (23:59)
[2018-09-14 00:10] LABS: Urine Appearance CLEAR; Urine Bilirubin NEGATIVE (NEG); Urine Blood 1+ (NEG); Urine Color YELLOW; Urine Glucose NEGATIVE (NEG); Urine Protein NEGATIVE (NEG); Urine Urobilinogen 0.2 mg/dL (0.2-1.0); Urine pH 5.5 (5.0-7.0)
--- NOTE | 2018-09-14 00:37 | HP ---
Date of Admission: 09/13/2018 Chief Complaint: Abdominal pain, fever, chills, diarrhea. History Of Present Illness: This is a very pleasant 78-year-old white female patient who was in her normal usual state of health until yesterday around 12:30 p.m. she started to have abdominal pain ass ociated with fever, chills, some nausea and diarrhea. No vomiting. No bleeding. Her pain has been more or less continuous, gets worse when she gets up and moves around. She has not had good appetite since she got sick yesterday with all these complaints. Today, she called office and requested appo intment to see me. After she was evaluated, she was admitted to the hospital with this abdominal chong n with concerns about possibility of acute diverticulitis or acute gastroenteritis. Allergies: NO KNOWN ALLERGIES. Medications: List reviewed. Review of Systems: Constitutional: As mentioned above. GI: As mentioned above. All other systems reviewed and negative. Past Medical History: Paroxysmal atrial fibrillation, hypertension, hyperlipidemia. Past Surgical History: Cholecystectomy, appendectomy, and ablation procedure for atrial fibrillation . Family History: Father had Alzheimer disease. Brother had atrial fibrillation. Social History: Negative for smoking, alcohol use. Physical Examination: Vital Signs: When she first was admitted to the hospital, temperature 97.1, pulse 80, respiratory ra te 17, blood pressure 116/60, oxygen saturation 97%. Height 5 feet 8 inches, weight 184 pounds. General: Awake, alert, oriented, not in distress. HEENT: Head atraumatic, normocephalic. Conjunctivae nonerythematous. Sclerae white. Mouth, no thr ush or edema noted. Ears/Nose, no mass, lesion, discharge noted. Neck: Supple. No JVD, lymph nodes, bruit, thyromegaly noted. Lungs: Bilateral good equal air entry. Clear to auscultation. No rhonchi. No rales. Heart: Normal heart sounds, no murmur or gallop. Abdomen: Soft. No distention. No guarding. No rigidity. No hepatosplenomegaly. No bruit. Patie nt has significant tenderness present all over her abdomen with some rebound tenderness in lower abdo men, especially right lower quadrant and suprapubic region. Bowel sounds normoactive. Extremities: No leg edema. No calf tenderness. Skin: No rash, ulcer, cellulitis. Lymphatics: No lymph node enlargement in neck, supraclavicular, infraclavicular region. Neuro: No focal neurological deficit. Chest: Unremarkable. External Genitalia: Deferred. Rectal: Deferred. Laboratory Data: White count 13, hemoglobin 12.6, platelets 176. INR 1.53. Procalcitonin 6.20. La ctic acid 1.1. Sodium 137, potassium 4.2, chloride 103, bicarb 28, BUN 10, creatinine 0.74, glucose 95. Liver function tests unremarkable. EKG; normal sinus rhythm, lateral and inferior infarct, age undetermined. Chest x-ray; chronic inter stitial lung disease, unchanged from before. CAT scan of the abdomen and pelvis with contrast shows [id number] acute diverticulitis involving rectosigmoid junction. No abscess, free air, or any other complicating factor. Numerous bilateral small bowel loops to the proximal ilium level. No def inite evidence of bowel obstruction. Impression: 1.Acute diverticulitis without perforation, without bleeding. 2.Paroxysmal atrial fibrillation. 3.Hypertension. 4.Hyperlipidemia. 5.Rule out ileus. Plan: We will admit the patient to hospital for further evaluation and management of this problem. Patient is appropriate for inpatient and is expected to spend 2 midnights in hospital. Home medicati ons will be continued per order for her chronic medical problems including her anticoagulation medica tions. We will keep her n.p.o. except few sips of water and ice chips on a p.r.n. basis and oral med ications. I will re-evaluate her tomorrow. Depending on her condition, we will decide if we can sta rt clear liquid diet tomorrow or not. We will give her IV antibiotic, Zosyn as per order. Initially , she was started on ceftriaxone and metronidazole, and as of this evening, I have change it to Zosyn . I did go back this evening to talk to her. She is feeling better compared to earlier today and I did explain her about the test results. I will see her tomorrow morning for followup. Ambulation wa s encouraged. JESSICA/MODL Voice ID: [id number]
[2018-09-14] MEDS: PIPER/TAZO/NS 3.375gm 3.375 GM/100 ML BAG IVPB SCH ×4 (00:39→16:48)
[2018-09-14 01:29] LABS: Urine Bacteria <20 /HPF (<20); Urine Culture Reflex Order REFLEXED; Urine RBC <5 /HPF (NONE SEEN)
[2018-09-14] MEDS: D5 0.9 NS 1,000 ML IV SCH ×2 (05:34→17:40)
[2018-09-14] MEDS ORDERED: LOPERAMIDE HCL 2 MG CAPSULE PO STA (06:19)
[2018-09-14] MEDS ORDERED: LOPERAMIDE HCL 2 MG CAPSULE PO PRN (06:19)
[2018-09-14 06:22] LABS: Absolute Lymphocytes (CBC) 1.6 K/uL (0.7-4.9); Basophils % 0.4 % (0-1.3); Hematocrit 38.5 % (36.0-45.0); Lymphocytes % 12.8 % (15.3-44.8); MPV 9.7 fL (7.6-11.3); RBC Red Blood Cell Count 4.32 M/uL (3.86-4.86)
[2018-09-14 06:36] LABS: Magnesium 2.4 mg/dL (1.8-2.4); Potassium 4.2 mmol/L (3.5-5.1)
--- NOTE | 2018-09-14 07:20 | PN ---
Date of Progress Note: 09/14/2018 Subjective: Patient was seen this morning for followup. She had about 8 episodes of diarrhea since I visited her last night around 8 p.m. until this morning around 6 a.m. She still has abdominal pain , but it is much better today compared to yesterday. Denies any nausea, vomiting. No bleeding. Physical Examination: Vital signs: Reviewed. This morning, temperature 98, pulse 73, respiratory rate 18, blood pressure 113/55. Blood pressure prior to that during nighttime was 103/53. HEENT: Unremarkable. Lungs: Clear to auscultation. Heart: Sounds normal. Abdomen: Soft. Bowel sounds normal. No guarding, rigidity, tenderness is very minimum, mostly in t he lower abdomen in the suprapubic and right lower quadrant, but otherwise abdominal tenderness signi ficantly better today and no rebound tenderness. Extremities: No leg edema. Laboratory Data: White count this morning is 12.5, hemoglobin 12.7 platelets 183. Impression: 1.Acute diverticulitis without perforation, without bleeding. 2.Hypertension. 3.Paroxysmal atrial fibrillation. 4.Hyperlipidemia. Plan: We will go ahead and continue current antibiotic. We will hold her metoprolol and isosorbide if systolic blood pressure is less than 130. Continue IV fluid per order. We will start her on grace r liquid diet. Ambulation was encouraged. Other home medications will be continued per order. Chem istry results from this morning is pending. Ambulation was encouraged. I will see her tomorrow for followup. Possible discharge to go home either tomorrow or day after tomorrow and details were discu ssed with the patient. One dose of Imodium 2 mg p.o. x1 dose will be given this morning, and then will use it every 6 hours as needed for diarrhea. JESSICA/MODL Voice ID: [id number] Report ID: [id number]
[2018-09-14] MEDS ORDERED: METOPROLOL SUCCINATE 50 MG PO SCH (09:00)
[2018-09-14] MEDS: ACETAMINOPHEN 325 MG TABLET PO PRN (10:30)
[2018-09-14] MEDS: APIXABAN 5 MG PO SCH ×3 (10:43→21:39)
[2018-09-14] MEDS: SOTALOL HCL 80 MG PO SCH ×3 (10:43→21:36)
[2018-09-14] MEDS: ATORVASTATIN CALCIUM 40 MG PO SCH ×2 (21:00→21:37)
[2018-09-14] MEDS: Ezetimibe 10 MG TABLET PO SCH ×2 (21:00→21:38)
[2018-09-14] MEDS: METOPROLOL SUCCINATE 50 MG PO SCH (21:00)
[2018-09-15] MEDS: PIPER/TAZO/NS 3.375gm 3.375 GM/100 ML BAG IVPB SCH ×3 (01:45→16:20)
[2018-09-15] MEDS: D5 0.9 NS 1,000 ML IV SCH ×3 (01:49→20:20)
[2018-09-15] MEDS: APIXABAN 5 MG PO SCH ×2 (08:56→21:24)
[2018-09-15] MEDS: SOTALOL HCL 80 MG PO SCH ×2 (08:57→21:25)
--- NOTE | 2018-09-15 15:57 | PN ---
Date of Progress Note: 09/15/2018 Subjective: The patient was seen this morning for followup. No new complaints or problems reported by patient except diarrhea. She had multiple episodes of diarrhea all day yesterday and some during nighttime. She took 1 dose of Imodium yesterday, 1 dose before I saw her early this morning and the patient says that it has actually helped to slow down her diarrhea. No nausea, vomiting. Abdominal pain is still present but better than yesterday and day before yesterday. She has very poor appetite. She has tried some clear liquid diet yesterday but after a few sips, it started causing some abdominal cramping , so she stopped drinking. Objective: Vital Signs: Reviewed. She is afebrile, hemodynamically stable. HEENT: Examination unremarkable. Lungs: Clear to auscultation. Heart: Sounds normal. Abdomen: Soft. Bowel sounds normal. No guarding, rigidity, no rebound tenderness. Bowel sounds normoactive. The patient does have lower abdominal tenderness and left lower quadrant suprapubic region and right lower quadrant tenderness is unchanged from yesterday. Extremities: No leg edema. Laboratory Data: Stool C diff negative. Impression: 1. Acute diverticulitis. 2. Hypertension. 3. Paroxysmal atrial fibrillation. 4. Hyperlipidemia. Plan: We will continue current medications. Imodium will be continued for diarrhea as needed. IV fluid will be continued. We will repeat blood work tomorrow. Yesterday's procalcitonin level was slightly better than day before. JESSICA/MODL Voice ID: [id number] Report ID: [id number] HILARY
[2018-09-15] MEDS: ACETAMINOPHEN 325 MG TABLET PO PRN (18:44)
[2018-09-15] MEDS: METOPROLOL SUCCINATE 50 MG PO SCH (21:00)
[2018-09-15] MEDS: ATORVASTATIN CALCIUM 40 MG PO SCH (21:24)
[2018-09-15] MEDS: Ezetimibe 10 MG TABLET PO SCH (21:25)
[2018-09-16] MEDS: PIPER/TAZO/NS 3.375gm 3.375 GM/100 ML BAG IVPB SCH ×3 (00:56→16:00)
[2018-09-16 05:59] LABS: Absolute Lymphocytes (CBC) 1.5 K/uL (0.7-4.9); Basophils % 0.5 % (0-1.3); Hematocrit 37.9 % (36.0-45.0); Lymphocytes % 15.5 % (15.3-44.8); MPV 9.2 fL (7.6-11.3); RBC Red Blood Cell Count 4.26 M/uL (3.86-4.86)
[2018-09-16 06:19] LABS: Albumin 2.6 g/dL (3.4-5.0); Bilirubin Total 0.8 mg/dL (0.2-1.0); Magnesium 2.1 mg/dL (1.8-2.4); Potassium 3.8 mmol/L (3.5-5.1); Protein, Total 6.6 g/dL (6.4-8.2)
[2018-09-16] MEDS: D5 0.9 NS 1,000 ML IV SCH (08:49)
[2018-09-16] MEDS: APIXABAN 5 MG PO SCH ×2 (08:51→21:26)
[2018-09-16] MEDS: SOTALOL HCL 80 MG PO SCH (08:51)
[2018-09-16] MEDS ORDERED: POTASSIUM CL SA 10 MEQ TAB PO ONE ×2 (09:00)
[2018-09-16] MEDS ORDERED: SOTALOL HCL 80 MG TAB PO ONE (12:45)
[2018-09-16] MEDS ORDERED: D5 0.9 NS 1,000 ML IV SCH (13:00)
--- NOTE | 2018-09-16 16:01 | CON ---
Reason For Consult: Atrial fibrillation. History Of Present Illness: Ms. Mccurdy has been in our hospital for 3 days with diverticulitis. She is slowly getting better. This morning, she went into atrial fibrillation. She has had atrial fibr illation paroxysmal for more than 20 years. She had 2 ablations, the last one was before 2009. She does not remember the name of doctor who did it. Sometime after 2009, she had 2 stents placed in her heart arteries. Now, she is free of any angina. She does not have diabetes. She has paroxysmal at rial fibrillation, CAD that is stable, dyslipidemia. Medications: Home medications have been ezetimibe, atorvastatin, Eliquis, isosorbide, sotalol, aceta minophen, and metoprolol. I wonder if that is a mistake that she is taking both sotalol and metoprol ol in the list. I would think that is an unusual combination of drugs for patient to take. She uses no tobacco. Never had a stroke. Physical Examination: General: 5 feet 8 inches, 184 pounds. Alert, oriented, pleasant, not in distress. Vital Signs: Heart rate 120, irregularly irregular. Blood pressure 133/62. HEENT: Normal. Lungs: Clear. HEART: Irregularly irregular, otherwise normal. Abdomen: Soft. Extremities: Normal. Distal pulses normal. No cyanosis, clubbing, or edema. Laboratory Data: Her potassium levels 3.8, creatinine 0.71. Impression: Ms. Mccurdy should get a higher dose of sotalol. If she is still in atrial fibrillation tomorrow, we will attempt a cardioversion. SHAISTA/CHINO Voice ID: [id number] Report ID: [id number]
--- NOTE | 2018-09-16 16:01 | PN ---
Date of Progress Note: 09/16/2018 Subjective: Patient was seen this morning for followup. Patient reported her abdominal pain is bett er. Diarrhea is better, but she has gone into atrial fibrillation with rapid ventricular rate. Joss es any palpitation, chest pain, shortness of breath, but feels tired since she has gone into atrial f ibrillation problem. Objective: Vital Signs: Reviewed. HEENT: Unremarkable. Lungs: Clear to auscultation. Heart: Sounds normal. Heart rate is rapid and rhythm is irregular. Abdomen: Soft. Bowel sounds normal. No guarding, rigidity, distention. Minimum tenderness in the lower abdomen, much better than before. Extremities: No leg edema. Laboratory Data: White count 9.9, hemoglobin 12.7, platelets 195. Sodium 142, potassium 3.8, chlori de 111, bicarb 26, BUN 4, creatinine 0.71, glucose 100. Liver function tests unremarkable. Procalci tonin 1.42. Magnesium level 2.1. Impression: 1.Acute diverticulitis. 2.Atrial fibrillation with rapid ventricular rate, paroxysmal. 3.Hypertension. 4.Hyperlipidemia. Plan: We will go ahead and give extra dose of sotalol 80 mg x1 now, which was ordered, and continue her 80 mg b.i.d. dose of sotalol and Eliquis 5 mg b.i.d. Continue current antibiotic. We will advan ce her diet to soft diet as of this evening. Consult Cardiology for atrial fibrillation problem and possibly discharge tomorrow depending on her condition. Details were discus sed with the patient. JESSICA/MODL Voice ID: [id number] Report ID: [id number]
[2018-09-16] MEDS: METOPROLOL SUCCINATE 50 MG PO SCH (21:00)
[2018-09-16] MEDS: SOTALOL HCL 120 MG PO SCH (21:26)
[2018-09-16] MEDS: ATORVASTATIN CALCIUM 40 MG PO SCH (21:28)
[2018-09-16] MEDS: Ezetimibe 10 MG TABLET PO SCH (21:30)
[2018-09-17] MEDS: PIPER/TAZO/NS 3.375gm 3.375 GM/100 ML BAG IVPB SCH ×3 (00:44→17:11)
[2018-09-17 06:26] LABS: Magnesium 2.1 mg/dL (1.8-2.4); Potassium 3.8 mmol/L (3.5-5.1)
[2018-09-17] MEDS ORDERED: POTASSIUM 25 MEQ EFFERV TAB PO ONE (09:00)
[2018-09-17] MEDS: SOTALOL HCL 120 MG PO SCH ×2 (10:32→20:34)
[2018-09-17] MEDS: APIXABAN 5 MG PO SCH ×2 (10:33→20:34)
--- NOTE | 2018-09-17 12:06 | PN ---
Mrs. Mccurdy is still in AFib. She is eating this morning. Not too anxious to do a cardioversion. E ncouraged her that by tomorrow, she is still in atrial fibrillation. We should keep her n.p.o. after midnight and will cancel that order if she reverts to sinus rhythm with a medicine change. SHAISTA/CHINO Voice ID: [id number] Report ID: [id number]
[2018-09-17] MEDS: ATORVASTATIN CALCIUM 40 MG PO SCH (20:34)
[2018-09-17] MEDS: Ezetimibe 10 MG TABLET PO SCH (20:34)
[2018-09-17 22:41] VITALS: O2SAT 95
--- NOTE | 2018-09-17 22:57 | PN ---
Date of Progress Note: 09/17/2018 Subjective: Patient was seen this morning for followup. No new complaints or problems reported by h er, except continues to feel tired due to atrial fibrillation problem. Abdominal pain is much better . She is tolerating soft diet well. Denies any chest pain, shortness of breath. Objective: Vital Signs: Reviewed. HEENT: Unremarkable. Lungs: Clear to auscultation. Heart: Sounds normal. Abdomen: Soft. Bowel sounds normal. No guarding, rigidity, distention. Minimum left lower quadran t tenderness, but much better than before. Extremities: No leg edema. Impression: 1.Atrial fibrillation with rapid ventricular rate. 2.Acute diverticulitis. 3.Hypertension. Plan: We will continue current medication. Cardiology consultation is appreciated. We will continu e to follow with Cardiology, who is going to make decision regarding cardioversion today. Continue s otalol, Eliquis, and current antibiotics. Possible discharge to go home tomorrow depending on condit ion. JESSICA/MODL Voice ID: [id number] Report ID: [id number]
[2018-09-18] MEDS: PIPER/TAZO/NS 3.375gm 3.375 GM/100 ML BAG IVPB SCH ×2 (01:07→08:54)
[2018-09-18 06:33] LABS: Absolute Lymphocytes (CBC) 1.7 K/uL (0.7-4.9); Basophils % 0.7 % (0-1.3); Hematocrit 32.4 % (36.0-45.0); Lymphocytes % 22.2 % (15.3-44.8); MPV 9.3 fL (7.6-11.3); RBC Red Blood Cell Count 3.64 M/uL (3.86-4.86)
[2018-09-18 06:45] LABS: Potassium 3.5 mmol/L (3.5-5.1)
[2018-09-18 08:51] VITALS: BP 118/60; TEMP 97.1
[2018-09-18] MEDS: SOTALOL HCL 120 MG PO SCH (08:52)
[2018-09-18] MEDS: APIXABAN 5 MG PO SCH (08:54)
--- NOTE | 2018-09-18 16:01 | EKG ---
Test Date: 2018-09-18 Test Time: 01:39:04 Taping Machine Operator: RT-O MEASUREMENT RESULTS: Intervals: Rate: 64 FL: 168 QRSD: 84 QT: 490 QTc: 505 [place]: P: 16 FL: 168 QRS: -6 T: 48 INTERPRETIVE STATEMENTS: Normal sinus rhythm Possible Lateral infarct, age undetermined Inferior infarct, age undetermined Abnormal ECG Compared to ECG 09/13/2018 14:45:24 Sinus arrhythmia no longer present Myocardial infarct finding still present Electronically Signed On 09-18-18 15:58:17 CDT by Reyes Stephens
--- NOTE | 2018-09-18 23:01 | PN ---
Date of Progress Note: 09/18/2018 The patient was admitted to Dr. Bernal on 09/13, seen by Dr. Fuentes. The patient with atrial fibrillat ion yesterday. Dr. Fuentes increase the Betapace from 80 b.i.d. to 120 b.i.d. because of her atrial f ibrillation. She had initially came in with diverticulitis. She had a history of CAD. She is statu s post 2 ablation for her atrial fibrillation many years ago. Luckily today she is in normal rhythm. The case was discussed with Dr. Bernal. She can go home on that higher dose of Betapace and continue the Eliquis. We will see her in the office next week or 2. CHILANGO/CHINO Voice ID: [id number] Report ID: [id number]
--- NOTE | 2018-09-19 05:59 | DS ---
Date of Discharge: 09/18/2018 Disposition: Discharged to go home. Physical Examination: HEENT: Unremarkable. Lungs: Clear to auscultation. Heart: Heart sounds normal. Abdomen: Soft, with minimum tenderness in left lower quadrant, which is significantly bet ter compared to at the time of admission. No rebound tenderness. Bowel sounds normoactive. Extremities: No leg edema. Laboratory Data: Upon admission, white count 13, hemoglobin 12.6, platelets 176. Today, white count , hemoglobin 10.8, platelets 198. Last chemistry today, sodium 144, potassium 3.5, chlori de 110, bicarb 29, BUN 4, creatinine 0.67, glucose 85. Last procalcitonin on 09/16/2018 was 1.42, an d upon admission, procalcitonin was 6. CAT scan of abdomen and pelvis showed evidence of diverticuli tis without any perforation or abscess. Discharge Medications And Instructions: Continue all prior home medications except change sotalol an d patient to take 120 mg twice a day, and take Augmentin 875 mg twice a day for 10 days. Follow up with Dr. Stephens next week. Follow up with my office in 2 weeks. Hospital Course: This is a 78-year-old, very pleasant female patient, came into my office with abdom inal pain, fever, chills, and diarrhea. Please see dictated H and P for more information. After jose tolentino was evaluated at our office, I was concerned about possibility of acute diverticulitis. The jose tolentino was admitted to the hospital for further evaluation, including labs and CAT scan of abdomen and pelvis done, and diagnosis of acute diverticulitis was established. The patient did not have any com plication with this diverticulitis. Initially, she was kept n.p.o., IV fluid and IV antibiotics were started, which was Zosyn. Her diarrhea continued and we had to give some Imodium and she did receiv e 2 or 3 doses of Imodium, and then diarrhea resolved. She has soft bowel movement now, but no more diarrhea. She did not have any bleeding problems. She has some blood on the tissue from her hemorrh oid from [id number], but no other rectal bleeding problem. As she was improving from diverticuliti s, we started her on clear liquid diet and subsequently started to advance her diet, but then she sally t into atrial fibrillation with rapid ventricular rate problem, and I did give her extra dose of sota lol and consult her glass installer technician, and Dr. Fuentes did increase the dose of her sotalol from 80 mg twic e a day to 120 [address] Fuentes had suggested to do cardioversion today if she continues t o be in atrial fibrillation and around 4 o'clock this morning, patient converted to sinus rhythm. He r only symptom with atrial fibrillation was feeling tired, and when she converted back to sinus rhyth m this morning, her tiredness suddenly resolved. [facility] approved her for discharge today. [facility], she is stable for discharge and as per recommendation from glass installer technician, prescription was giv en for sotalol 120 mg twice a day. Final Diagnoses: 1.Acute diverticulitis without perforation, without bleeding. 2.Anemia, unspecified. 3.Paroxysmal atrial fibrillation. 4.Hypertension. 5.Hyperlipidemia. JESSICA/MODL Voice ID: [id number] Report ID: [id number]
== END 2018-09-18 11:27 | disposition home or self-care (01) | DRG 392 ==
LOC: 2ND 13:05
PROVIDERS: ADMIT Internal Medicine; ATTEND Internal Medicine
DX: K57.92 Diverticulitis of intestine, part unspecified, without perforation or abscess without bleeding (principal); D64.9 Anemia, unspecified; I48.0 Paroxysmal atrial fibrillation; I10 Essential (primary) hypertension; E78.5 Hyperlipidemia, unspecified; I25.10 Atherosclerotic heart disease of native coronary artery without angina pectoris
CPT/HCPCS: 36415; 71046; 74177; 80048; 80053; 81001; 83605; 83735; 84145; 85025; 85610; 85730; 87086; 87088; 87493; 93005; J0696; J2543; Q9967